=== PATIENT | female | born 1980 | race Caucasian/White ===

== ENCOUNTER 2018-12-12 11:00 | Outpatient (RCR) | payer BC ==
[~2018-12-12 11:00] MED LIST: DEPO-PROVER150 MG/M1 IM; PHENERGAN 25 TA25 MG PO; PRENATAL VITA1 UDTAB PO
== END 2018-12-12 11:05 | disposition home or self-care (01) ==
LOC: WSC 11:00
DX: M84.361D Stress fracture, right tibia, subsequent encounter for fracture with routine healing (principal); M25.561 Pain in right knee

== ENCOUNTER → 2024-07-26 | Outpatient (CLI) | payer BC | LOC: MC.RAD 07:04 | DX: Z12.31 Encounter for screening mammogram for malignant neoplasm of breast (principal); N64.89 Other specified disorders of breast ==